=== PATIENT | male | born 1970 | race Two or more races ===

== ENCOUNTER 2025-08-30 20:21 | Emergency (ER) | payer BC, SELFPAY ==
[2025-08-30 20:25] VITALS: BP 204/91; PULSE 80; RESP 18; TEMP 36.9; O2SAT 95
[2025-08-30 20:29] VITALS: PULSE 82; O2SAT 98
--- NOTE | 2025-08-30 21:16 | XR_ITS ---
Examination: Duplex scan of the lower extremity, unilateral left Date and time of exam: August 30, 2025, 2155 hours INDICATIONS: Left leg swelling and pain beginning today. Technique: Duplex scan of the extremity veins using B-mode/grayscale imaging and Doppler spectral analysis and color flow Attention is directed to internal echogenicity, compression and augmentation involving these veins, color flow assessment, spectral analysis Findings: Major deep venous structures in the extremity demonstrate normal course and caliber. There is no evidence of deep vein thrombosis. Normal color flow and spectral analysis Impression: Negative for DVT..
--- NOTE | 2025-08-30 21:17 | EDNOTE_ITS ---
ED Extremity Problem RME/HPI General Chief complaint: Extremity Problem,Nontraumatic Stated complaint: LEG PAIN Time Seen by Provider: 08/30/25 21:01 Arrival date/time: 08/30/25 20:21 55-year-old male patient came in for evaluation regarding left posterior leg swelling and tenderness. This been ongoing for the last 2 days, described as dull ache, severity moderate. Patient was just walking when it happened, patient denies any trauma or fall. Denies any chest pain denies any headache denies any other complaints patient is not taking any blood thinner denies any history of DVT or family history of DVT in the past. Related Data Previous Rx's ?Medication ?Instructions ?Recorded clindamycin HCl 300 mg capsule 300 mg PO TID #30 caps 12/05/19 hydrocodone 5 mg-acetaminophen 325 1 tab PO BID PRN pa in #10 tabs 12/05/19 mg tablet ([place]) ibuprofen 800 mg tablet 800 mg PO TID PRN pain #30 t abs 12/05/19 famotidine 40 mg tablet (Pepcid) 40 mg PO BID #20 tabs 08/30/25 ibuprofen 800 mg tablet 800 mg PO TID PRN pain #30 t abs 08/30/25 prednisone 50 mg tablet 50 mg PO QDAY #7 tabs Allergies Allergy/AdvReac Type Severity Reaction Status Date / Time No Known Allergies Allergy Verified 12/04/19 15:18 Review of Systems Review of Systems Narrative Review of Systems: Review of system reviewed and within normal limits except mentioned in HPI ED Exam Narrative Physical exam: VITAL SIGNS: Reviewed. GENERAL APPEARANCE: Alert and interactive, follows commands, no acute distress, HEAD AND FACE: Non-traumatic. ENT: PERRL, pink conjunctivitis, eyelid no trauma, Mucous membrane moist. NECK: Supple, nontender, no nuchal rigidity. CHEST: No tenderness, no crepitus, no paradoxical movement, no retractions. LUNGS: Clear, well ventilated, symmetric, no rales, no wheezing, no ronchi, no stridor, good breath sounds bilaterally. HEART: Regular rate, regular rhythm, no murmur, no gallops. ABDOMEN: Soft, positive bowel sounds, nondistended, no guarding, nontender, no rebound, no masses, RECTAL: Deferred. GENITAL: Deferred. NEUROLOGICAL: Gross motor function intact sensory function intact, Appropriate for age. MUSCULOSKELETAL: low back nontender, full range of motion. EXTREMITIES: Posterior knee tenderness, no mild swelling noted on the posterior lower leg positive Homans sign. With limitation range of motion of the knee joint due to pain no swelling to the knee joints. Distal neurovascular status intact. SKIN: Color pink, dry, no rash, no lacerations, no abrasions, no contusions. LYMPHATICS: Deferred. Course Quality Measures none Orders Category Date Time Status Crutches .NOW Care 08/30/25 22:31 Completed Splint / Immobilizer STAT Care 08/30/25 22:31 Completed US venous doppler LE LT Stat Exams 08/30/25 21:16 Completed XR knee limited LT 2V Stat Exams 08/30/25 22:32 Completed CBC [CBC] Stat Lab 08/30/25 22:05 Completed CMP [Comprehensive Metabolic Panel] Stat Lab 08/30/25 22:05 Completed PTT [Partial Thromboplastin Time] Stat Lab 08/30/25 22:05 Completed HYDROcodone/APAP 10/325 [[place] 10/325] Med 08/30/25 21:15 Discontinued 1 tab PO X1 ONE Ketorolac Inj [Toradol Inj] Med 08/30/25 22:37 Discontinued 30 mg IM X1 ONE cloNIDine HCL [Catapres] Med 08/30/25 21:15 Discontinued 0.2 mg PO X1 ONE Vital Signs Vital signs: Vital Signs Temperature 98.5 F 08/30/25 20:25 Pulse Rate 80 08/30/25 20:25 Respiratory Rate 18 08/30/25 20:25 Blood Pressure 204/91 H 08/30/25 20:25 Pulse Oximetry (%) 95 08/30/25 20:25 Oxygen Delivery Method Room Air 08/30/25 20:25 Extremity Problem MDM Narrative MDM Narrative:: 55-year-old male patient came in for evaluation regarding left posterior leg swelling and tenderness. This been ongoing for the last 2 days, described as dull ache, severity moderate. Patient was just walking when it happened, patient denies any trauma or fall. Denies any chest pain denies any headache denies any other complaints patient is not taking any blood thinner denies any history of DVT or family history of DVT in the past. Ultrasound of the lower extremity is negative for DVT. X-ray of the knee showed mild osteoarthritis otherwise unremarkable. Patient stable for discharge home Patient data External records reviewed:: None Clinical information provided by:: patient Social determinants that could affect healthcare access:: none Patient has the following chronic illnesses:: Hypertension How is presenting disease/condition affected by chronic disease/condition?: no chronic disease Evaluation data The following diagnostics were reviewed and interpreted by me:: lab results Lab and/or radiology exams considered but not ordered:: None Interpretation Summary: See above Medications / Prescriptions Medications or Prescriptions considered but not ordered:: None Medication administrations:: Medication Administration History Discontinued Medications Hydrocodone Bitart/Acetaminophen (Hydrocodone/Apap 10/325 Tab) 1 tab PO X1 ONE Stop: 08/30/25 21:16 Last Admin: 08/30/25 21:24 Dose: 1 tab Documented By: ORTIZ Clonidine (Clonidine Hcl 0.1 Mg Tablet) 0.2 mg PO X1 ONE Stop: 08/30/25 21:16 Last Admin: 08/30/25 21:27 Dose: Not Given Documented By: ORTIZ Non-Admin Reason: Cancelled by Provider Comments: BP 174/89 HR 72 PROVIDER MADE AWARE AND CANCELLED MEDICATION Ketorolac Tromethamine (Ketorolac Inj 30 Mg/Ml Vial) 30 mg IM X1 ONE Stop: 08/30/25 22:38 Last Admin: 08/30/25 23:07 Dose: 30 mg Documented By: SANDRA Toradol, clonidine [place] Consultations Consultation(s) initiated? (list below): No Diagnosis Extremity Problem Differential Diagnosis: deep vein thrombosis of lower extremity and other (Knee pain, knee sprain) Most likely diagnosis given after review of the tests above:: Knee pain Admission Indicated Admission indicated?: not indicated Admission Request Was there a request for admission?: No Disposition Plan Disposition Plan: Discharge Discharge Attestation Discharge Attestation: The patient and all family members were given an opportunity to ask questions and understood the discharge instructions. Discharge instructions specifically effects, indications for sooner follow up or return to the emergency department, and the expected course of current diagnosis. Patient condition: Stable Discharge Plan Plan Patient Disposition: HOME (Self Care) Discharge Disposition comment: Stable Prescriptions/Referrals Prescriptions/Med Rec: New prednisone 50 mg tablet 50 mg PO QDAY Qty: 7 0RF ibuprofen 800 mg tablet 800 mg PO TID PRN (Reason: pain) Qty: 30 0RF famotidine [Pepcid] 40 mg tablet 40 mg PO BID Qty: 20 0RF No Action clindamycin HCl 300 mg capsule 300 mg PO TID Qty: 30 0RF ibuprofen 800 mg tablet 800 mg PO TID PRN (Reason: pain) Qty: 30 0RF hydrocodone-acetaminophen [[place]] 5-325 mg tablet 1 tab PO BID MDD 3 tabs PRN (Reason: pain) Qty: 10 0RF Problem List Clinical Impression: Acute knee pain Patient/Caregiver Discharge Instructions Discharge Activity: activity as tolerated Education Materials: Knee Pain Additional Instructions: Thank you for the opportunity for serving you today. You are stable for discharged . You are advised to: Follow-up with your PCP in 1 to 2 days Return to ED for worsening of symptoms Increase oral fluids Take medication as prescribed Wear your knee brace as needed for pain Ambulate with crutches Print Language: Estonian Stand Alone Forms: Pam Award Info., Patient Portal Info Letter PA/[employer] Supervising Physician DENISE/FABI Supervising Physician: MD Thais
[2025-08-30 21:37] VITALS: BP 174/89; PULSE 72
--- NOTE | 2025-08-30 22:32 | XR_ITS ---
EXAMINATION: AP lateral left knee 2 views TECHNIQUE: AP lateral left knee 2 views Date and time: August 30, 2025, 11:09 p.m. INDICATIONS: Onset left knee pain today no trauma FINDINGS: Mild narrowing medial lateral joint space Mild osteopenia. No fracture or dislocation Faint meniscus calcification Minimal knee effusion IMPRESSION: Mild osteoarthritis No fracture
[2025-08-30 22:34] LABS: Basophils # (Auto) 0.1 Thou/mm3 (0.0-0.2); Basophils % (Auto) 0 % (0-2.5); Eosinophils # (Auto) 0.1 Thou/mm3 (0.0-0.5); Eosinophils % (Auto) 1 % (0-10); Hematocrit 42.7 % (41.0-53.0); Hemoglobin 14.9 g/dL (13.5-16.0); Immature Granulocytes Auto 0.03 Thou/mm3 (0.00-0.00); Lymphocytes # (Auto) 2.7 Thou/mm3 (1.0-4.8); Lymphocytes % (Auto) 24 % (10-50); Mean Corpuscular HGB Conc 34.9 g/dl (31.0-37.0); Mean Corpuscular Hemoglobin 32.7 pg (25.0-35.0); Mean Corpuscular Volume 94 fL (80-100); Monocytes # (Auto) 1.0 Thou/mm3 (0.0-0.8); Monocytes % (Auto) 9 % (0-12); Neutrophils # (Auto) 7.6 Thou/mm3 (1.8-7.7); Neutrophils % (Auto) 66 % (37-80); Nucleated Red Blood Cell # 0.00 Thou/mm3 (0.00-0.00); Nucleated Red Blood Cell % 0 /100 WBC (0); Platelet Count 271 Thou/mm3 (140-440); RDW Standard Deviation 42.1 fL (35.1-43.9); Red Blood Count 4.56 Miln/mm3 (4.50-5.90); White Blood Count 11.5 Thou/mm3 (3.8-10.6)
[2025-08-30 23:07] LABS: Alanine Aminotransferase 24 U/L (10-49); Albumin, Serum 5.2 gm/dL (3.5-5.0); Albumin/Globulin Ratio 1.9 (1.2-2.2); Alkaline Phosphatase 86 U/L (46-116); Anion Gap 8 (7-16); Aspartate Amino Transferase 21 U/L (0-34); BUN/Creatinine Ratio 11 Ratio (12-20); Bilirubin,Total 0.6 mg/dL (0.3-1.2); Blood Urea Nitrogen 9 mg/dL (9-23); Calcium 9.5 mg/dL (8.3-10.6); Calcium (Corrected) 9.5 mg/dL (8.5-10.1); Carbon Dioxide 26.9 mMol/L (20.0-31.0); Chloride 105 mMol/L (98-107); Creatinine (Component) 0.8 mg/dL (0.6-1.3); Globulin 2.8 gm/dL (2.3-3.5); Glucose 95 mg/dL (74-106); Osmolality,Calculated 278 (275-295); Potassium 3.8 mMol/L (3.4-5.1); Sodium 140 mMol/L (136-145); Total Protein 8.0 gm/dL (5.7-8.2); eGFR > 60 See Note
[2025-08-30] MEDS: KETOROLAC INJ 30 MG/ML VIAL IM (23:07)
[2025-08-30 23:44] LABS: Partial Thromboplastin Time 29.1 Seconds (22.0-36.0)
[2025-08-31 00:38] VITALS: PULSE 60; RESP 17; TEMP 37.2; O2SAT 97
== END 2025-08-31 00:43 | disposition home or self-care (01) ==
LOC: SERX 23:45
PROVIDERS: Nurse Practitioner Family; Emergency Provider Emergency Medicine
DX: M17.12 Unilateral primary osteoarthritis, left knee (principal); M79.89 Other specified soft tissue disorders
CPT/HCPCS: 36415; 73560; 80053; 85025; 85730; 93971; 96372; 99284; J1885; A9270